=== PATIENT | female | born 1960 | race Two or more races ===

== ENCOUNTER → 2024-07-11 | Outpatient (CLI) | payer BC, SELFPAY ==
--- NOTE | 2024-07-11 09:00 | XR_ITS ---
Examination: Screening digital mammography, bilateral Computer aided detection 3-D breast Tomosynthesis, bilateral Date and time of exam: 07/11/2024, 9:06 AM Comparisons: July 2014, July 2021 Indications: Screening Technique: Nonmagnified MLO, CC views of the breasts to been obtained, reconstructed from 3-D Tomosynthesis images. R2 computer aided detection program utilized for evaluation of suspicious masses and/or abnormal calcifications. 3-D Tomosynthesis images obtained. Technologist: Findings: The breasts are heterogeneously dense, which may obscure small masses. No evidence of abnormal masses or suspicious calcifications. Impression: BI-RADS category 1: Negative findings (within normal) Recommend 1 year follow-up mammogram
== END | disposition home or self-care (01) ==
LOC: CDIM 08:38 → COPL 09:14 → CDIM 07-14 09:10
PROVIDERS: Referring Provider Specialist; Visit Provider Student in an Organized Health Care Education/Training Program
DX: Z12.31 Encounter for screening mammogram for malignant neoplasm of breast (principal); R92.312 Mammographic fatty tissue density, left breast
CPT/HCPCS: 77063; 77067; 84443; 86038

== ENCOUNTER → 2024-07-13 | Outpatient (CLI) | payer BC, SELFPAY ==
[2024-07-13 10:50] LABS: Thyroid Stimulating Hormone 1.39 uIU/mL (0.55-4.78)
== END | disposition home or self-care (01) ==
LOC: COPL 09:35
PROVIDERS: PCP Family Medicine; Referring Provider Specialist; Visit Provider Specialist
DX: R13.10 Dysphagia, unspecified (principal); R19.4 Change in bowel habit
CPT/HCPCS: 36415; 84443; 86038

== ENCOUNTER 2024-08-11 08:25 | Day surgery (SDC) | payer BC, SELFPAY ==
[2024-08-10 14:15] VITALS: BMI 29.6
[2024-08-11] VITALS (13 sets, daily range): BP systolic 128–173; BP diastolic 83–118; PULSE 68–116; RESP 12–21; TEMP 36.5; O2SAT 96–100; BMI 28.7
[2024-08-11] MEDS: SODIUM CHLORIDE 0.9% 500 ML 500 ML 20 ML IV (08:58)
[2024-08-11] MEDS: DiphenhydrAMINE INJ 50 MG/ML VIAL 25 MG IV (10:32)
[2024-08-11] MEDS: MIDAZOLAM INJ 1 MG/ML VIAL 2 ML (ASD USE ONLY) 2 MG IV (11:00)
[2024-08-11] MEDS: fentaNYL CIT INJ 50 mCg/ML AMP 2ML (ASD USE ONLY) IV (11:00)
--- NOTE | 2024-08-11 11:59 | SUR.PHASEII ---
1135 Pt more awake and alert. Via environmental projects advisor-pt denies pain,difficulty or N/V. Abd remains soft. [place] PO fluids. 1150 Pt assessment unchanged. No complaints. Amb with steady gait. Able to dress self. Pt and given dc instructions via photographic enlarger operator Richie. Both state understanding. Pt meets dc criteria-to home.
== END 2024-08-11 11:50 | disposition home or self-care (01) ==
PROVIDERS: PCP Physician Assistant; Referring Provider Specialist; Visit Provider Specialist
PROC: (CPT 43239; principal; 2024-08-11 09:00)
PROC: 0DBE8ZX Excision of Large Intestine, Via Natural or Artificial Opening Endoscopic, Diagnostic (ICD-10-PCS; CPT 45380; 2024-08-11 09:00)
DX: D12.3 Benign neoplasm of transverse colon (principal); K64.9 Unspecified hemorrhoids; K57.30 Diverticulosis of large intestine without perforation or abscess without bleeding; K29.50 Unspecified chronic gastritis without bleeding; K31.89 Other diseases of stomach and duodenum; K63.5 Polyp of colon; K63.89 Other specified diseases of intestine
CPT/HCPCS: 45385; 45380; A4649; C1769; J1200; J2250; J3010; J7040